=== PATIENT | male | born 1945 | race American Indian/Alaskan Native ===

== ENCOUNTER 2021-02-03 08:54 | Day surgery (SDC) | payer MEDICARE, OTHER ==
[2021-02-02 10:31] LABS: PARTIAL THROMBOPLASTIN TIME 28 SECONDS (22-32)
[2021-02-02 10:33] LABS: BASOPHILS % (AUTO) 1.4 % (0-1); EOSINOPHILS % (AUTO) 3.4 % (0-6); HEMATOCRIT 51.7 % (42.0-52.0); HEMOGLOBIN 17.6 g/dl (14.0-17.9); LYMPHOCYTES % (AUTO) 20.3 % (21-51); MEAN CORPUSCULAR HEMOGLOBIN 31.1 PG (27.0-31.0); MEAN CORPUSCULAR HGB CONC 34.1 g/dL (33.0-36.5); MEAN CORPUSCULAR VOLUME 91.2 FL (78-98); MEAN PLATELET VOLUME 9.1 FL (7.4-10.4); MONOCYTES % (AUTO) 7.3 % (2-12); NEUTROPHILS % (AUTO) 67.6 % (42-75); PLATELET COUNT 187 X10'3 (140-440); RED BLOOD COUNT 5.67 X10'6 (4.70-6.10); RED CELL DISTRIBUTION WIDTH 14.3 % (11.5-14.5); WHITE BLOOD COUNT 7.8 X10'3 (4.5-11.0)
[2021-02-02 10:34] LABS: BASOPHILS # (AUTO) 0.1 X10'3 (0-0.2); EOSINOPHILS # (AUTO) 0.3 X10'3 (0-0.9); LYMPHOCYTES # (AUTO) 1.6 X10'3 (1.1-4.8); MONOCYTES # (AUTO) 0.6 X10'3 (0-0.9); NEUTROPHILS # (AUTO) 5.3 X10'3 (1.8-7.7)
[2021-02-02 10:54] LABS: ANION GAP 11 (8-16); BLOOD UREA NITROGEN 15 MG/DL (7-18); BUN/CREATININE RATIO 10.9 (5.4-32.0); CALCIUM 8.4 MG/DL (8.5-10.1); CHLORIDE 107 MMOL/L (99-107); CREATININE 1.37 MG/DL (0.60-1.10); GLUCOSE 136 MG/DL (70-104); POTASSIUM 4.1 MMOL/L (3.5-5.1); SODIUM 142 MMOL/L (135-145); TOTAL CARBON DIOXIDE 23.9 MMOL/L (24-32); eGFR 51 ML/MIN
[~2021-02-03] VITALS: Ht 175.3 cm; Wt 111.5 kg
[2021-02-03] VITALS (9 sets, daily range): BP systolic 116–150; BP diastolic 63–94
[~2021-02-03 08:54] MED LIST: ALBU2.5V7 NEB; AMIO200T61 PO; APIX5TAB3 PO; CARV3.1289 PO; CLOP75TA34 PO; DIGO125T97 PO; FAMO40TA7 PO; FERR325T28 PO; FURO10VI51 IV; LANS30CA37 PO; LEVO750T21 PO; LISI-790 PO; NIA500ERT PO; POTA10CA44 PO; PRAV80TA3 PO
[2021-02-03] MEDS ORDERED: cefazolin/dext.iso 2gm/100ml 100 ML IV ONE (09:10)
[2021-02-03] MEDS ORDERED: ALLO100T PO (09:25)
[2021-02-03] MEDS ORDERED: SPIR25TA5 PO (09:25)
[2021-02-03] MEDS ORDERED: SACU1TAB PO (09:25)
[2021-02-03] MEDS ORDERED: FURO40TA4 PO (09:25)
[2021-02-03] MEDS ORDERED: CARV-49 PO (09:25)
[2021-02-03] MEDS ORDERED: ASPI-1265 PO (09:25)
[2021-02-03] MEDS ORDERED: midazolam 1 mg/ML 2ml injection ONE ×3 (12:20→16:07)
[2021-02-03] MEDS ORDERED: fentaNYL/PF 50MCG/1 ML 2ML syringe ONE ×3 (12:20→16:07)
[2021-02-03] MEDS ORDERED: iohexol 350MG/ML 100ml bottle IV ONE ×2 (12:21→15:33)
[2021-02-03] MEDS ORDERED: ceFAZolin 1000mg inj ONE (12:21)
[2021-02-03] MEDS ORDERED: LIDOcaine 1% W/epiNEPHrine 1:100,000 20ml vial ONE (12:21)
[2021-02-03] MEDS ORDERED: vancomycin/NS 1 GM ADD-VANTAGE 250 ML IV ONE (15:20)
[2021-02-03] MEDS ORDERED: HYDROcodone/acetaminophen 10/325mg tab PO PRN (17:15)
[2021-02-03] MEDS ORDERED: HYDROcodone/acetaminophen 5mg/325mg tablet PO PRN (17:15)
--- NOTE | 2021-02-03 18:55 | NUR ---
report given to Sugar SHAY
== END 2021-02-03 20:50 | disposition home or self-care (01) ==
LOC: SSTAY O 08:54
PROVIDERS: ATTEND Internal Medicine Cardiovascular Disease
DX: I42.0 Dilated cardiomyopathy (principal); I25.5 Ischemic cardiomyopathy; I44.7 Left bundle-branch block, unspecified; I11.0 Hypertensive heart disease with heart failure; I50.22 Chronic systolic (congestive) heart failure; E78.49 Other hyperlipidemia; G47.30 Sleep apnea, unspecified; I25.10 Atherosclerotic heart disease of native coronary artery without angina pectoris; I25.2 Old myocardial infarction; I48.0 Paroxysmal atrial fibrillation; E11.9 Type 2 diabetes mellitus without complications; E66.9 Obesity, unspecified; Z68.36 Body mass index [BMI] 36.0-36.9, adult; Z95.1 Presence of aortocoronary bypass graft; Z79.82 Long term (current) use of aspirin; Z79.899 Other long term (current) drug therapy; Z85.46 Personal history of malignant neoplasm of prostate; Z95.5 Presence of coronary angioplasty implant and graft; Z87.891 Personal history of nicotine dependence; Z72.89 Other problems related to lifestyle
CPT/HCPCS: 33225; 33249; 36415; 71046; 80048; 83880; 85025; 85610; 85730; 93005; 99152; 99153; C1769; C1882; C1887; C1894; C1895; C1900; J0690; J2250; J3010; J3370; Q9967; A4565; A4620; A6258; A6449

== ENCOUNTER 2021-05-14 09:11 | Inpatient (IN) | payer MEDICARE, OTHER ==
[~2021-05-14] VITALS: Ht 175.3 cm; Wt 111.3 kg
[~2021-05-14 09:11] MED LIST changes: -ALBU2.5V7 NEB; +ALLO100T PO; -AMIO200T61 PO; -APIX5TAB3 PO; +ASPI-1265 PO; +CARV-49 PO; -CARV3.1289 PO; -CLOP75TA34 PO; -DIGO125T97 PO; -FERR325T28 PO; -FURO10VI51 IV; +FURO40TA4 PO; -LEVO750T21 PO; -LISI-790 PO; +LISI5TAB22 PO; -NIA500ERT PO; -POTA10CA44 PO; +SACU1TAB PO; +SPIR25TA5 PO
--- NOTE | 2021-05-14 10:06 | NUR ---
Bettina march per Dr. Ahn at this time Addendum: 05/14/21 at 1007 by Pooja ROJAS Amended: Links added.
[2021-05-14 10:14] LABS: BASOPHILS # (AUTO) 0.1 X10'3 (0-0.2); BASOPHILS % (AUTO) 0.5 % (0-1); EOSINOPHILS # (AUTO) 0.1 X10'3 (0-0.9); EOSINOPHILS % (AUTO) 0.5 % (0-6); HEMATOCRIT 50.6 % (42.0-52.0); HEMOGLOBIN 16.9 g/dl (14.0-17.9); LYMPHOCYTES # (AUTO) 0.6 X10'3 (1.1-4.8); LYMPHOCYTES % (AUTO) 3.6 % (21-51); MEAN CORPUSCULAR HEMOGLOBIN 30.7 PG (27.0-31.0); MEAN CORPUSCULAR HGB CONC 33.4 g/dL (33.0-36.5); MEAN CORPUSCULAR VOLUME 91.9 FL (78-98); MEAN PLATELET VOLUME 8.4 FL (7.4-10.4); MONOCYTES # (AUTO) 0.8 X10'3 (0-0.9); MONOCYTES % (AUTO) 4.5 % (2-12); NEUTROPHILS # (AUTO) 15.3 X10'3 (1.8-7.7); NEUTROPHILS % (AUTO) 90.9 % (42-75); PLATELET COUNT 145 X10'3 (140-440); RED CELL DISTRIBUTION WIDTH 14.1 % (11.5-14.5); WHITE BLOOD COUNT 16.9 X10'3 (4.5-11.0)
[2021-05-14 10:39] LABS: ALANINE AMINOTRANSFERASE 24 U/L (12-78); ALBUMIN 3.6 G/DL (3.4-5.0); ALKALINE PHOSPHATASE 68 IU/L (46-116); ANION GAP 8 (8-16); ASPARTATE AMINO TRANSFERASE 17 U/L (10-37); BILIRUBIN,TOTAL 1.4 MG/DL (0.1-1.0); BLOOD UREA NITROGEN 11 MG/DL (7-18); BUN/CREATININE RATIO 8.8 (5.4-32.0); CHLORIDE 106 MMOL/L (99-107); CREATININE 1.25 MG/DL (0.60-1.10); GLUCOSE 172 MG/DL (70-104); POTASSIUM 4.2 MMOL/L (3.5-5.1); SODIUM 138 MMOL/L (135-145); TOTAL CARBON DIOXIDE 24.4 MMOL/L (24-32); TOTAL PROTEIN 7.1 G/DL (6.4-8.2); eGFR 56 ML/MIN
[2021-05-14] MEDS ORDERED: furosemide 10 MG/1 ML 10ml inj IV ONE (11:05)
--- NOTE | 2021-05-14 12:10 | NUR ---
PT STOOD TO URINATE WITH STANDBY ASSISTANCE.
--- NOTE | 2021-05-14 12:36 | NUR ---
PT TRIALED OFF BIPAP, ABLE TO SAY 3-4 WORDS, INCREASED WOB CONTINUES. MD INFORMED. PER MD, PT WILL BE ADMITTED.
[2021-05-14] MEDS ORDERED: magnesium 2GM in 50ml NS 50 ML IV PRN (13:10)
[2021-05-14] MEDS ORDERED: magnesium 4gm in 100ml NS 100 ML IV PRN (13:10)
[2021-05-14] MEDS ORDERED: magnesium Cl slow-release 64mg tablet PO PRN (13:10)
[2021-05-14] MEDS ORDERED: potassium CL 10mEq/100ml bag 100 ML IV PRN (13:10)
[2021-05-14] MEDS ORDERED: ondansetron/PF 4mg/2ml inj IV PRN (13:10)
[2021-05-14] MEDS ORDERED: acetaminophen 325mg tablet PO PRN (13:10)
[2021-05-14] MEDS ORDERED: potassium Cl 20 mEq SR tablet PO PRN ×2 (13:10)
[2021-05-14] MEDS ORDERED: mag hydrox/Alum hydrox/simeth 30ml oral suspension PO PRN (13:10)
[2021-05-14] MEDS ORDERED: magnesium hydroxide 30ml (MOM) UD suspension PO PRN (13:10)
[2021-05-14 14:03] LABS: MAGNESIUM 1.7 MG/DL (1.5-2.4)
--- NOTE | 2021-05-14 14:03 | NUR ---
PT UP TO USE URINAL WITH STANDBY ASSISTANCE. TOLERATED WELL, RETURNED TO BED WITHOUT INCIDENT.
--- NOTE | 2021-05-14 14:21 | NUR ---
REPORT GIVEN TO JASPAL MEJIA
[2021-05-14] MEDS ORDERED: SACU1TAB7 PO (14:32)
[2021-05-14] MEDS ORDERED: FURO20TA4 PO (14:32)
[2021-05-14] MEDS ORDERED: FAMO20TA79 PO (14:32)
[2021-05-14] MEDS ORDERED: LANS15CA18 PO (14:32)
[2021-05-14 16:31] VITALS: BP 123/84
[2021-05-14 18:00] VITALS: BP 129/84
--- NOTE | 2021-05-14 19:05 | NUR ---
Problems reprioritized. Patient report given, questions answered & plan of care reviewed with Yanni.
[2021-05-14] MEDS: docusate sod 100mg capsule PO SCH (19:12)
[2021-05-14] MEDS: carVEDilol 3.125mg tablet PO SCH (19:17)
[2021-05-14] MEDS: K and/or MAG REPLACEMENT MC SCH ×2 (19:19→20:00)
[2021-05-14] MEDS: sacubitril/valsartan 49mg-51mg tablet PO SCH (19:31)
[2021-05-14 22:00] VITALS: BP 121/78
--- NOTE | 2021-05-15 06:55 | NUR ---
Patient in room PCU 3015. I have received report from Yanni SHAY and had the opportunity to ask questions and assume patient care.
[2021-05-15] MEDS: carVEDilol 3.125mg tablet PO SCH (07:31)
[2021-05-15] MEDS: docusate sod 100mg capsule PO SCH (07:31)
[2021-05-15] MEDS: sacubitril/valsartan 49mg-51mg tablet PO SCH (07:42)
[2021-05-15 07:46] LABS: BASOPHILS % (AUTO) 0.4 % (0-1); EOSINOPHILS # (AUTO) 0.2 X10'3 (0-0.9); EOSINOPHILS % (AUTO) 2.4 % (0-6); HEMATOCRIT 46.2 % (42.0-52.0); HEMOGLOBIN 15.9 g/dl (14.0-17.9); LYMPHOCYTES % (AUTO) 10.6 % (21-51); MEAN CORPUSCULAR HEMOGLOBIN 30.9 PG (27.0-31.0); MEAN CORPUSCULAR HGB CONC 34.4 g/dL (33.0-36.5); MEAN CORPUSCULAR VOLUME 89.7 FL (78-98); MEAN PLATELET VOLUME 8.8 FL (7.4-10.4); MONOCYTES % (AUTO) 10.1 % (2-12); NEUTROPHILS # (AUTO) 7.3 X10'3 (1.8-7.7); NEUTROPHILS % (AUTO) 76.5 % (42-75); PLATELET COUNT 139 X10'3 (140-440); RED BLOOD COUNT 5.15 X10'6 (4.70-6.10); RED CELL DISTRIBUTION WIDTH 14.2 % (11.5-14.5); WHITE BLOOD COUNT 9.6 X10'3 (4.5-11.0)
[2021-05-15] MEDS ORDERED: lansoprazole 15mg solutab PO SCH (08:00)
[2021-05-15] MEDS ORDERED: enoxaparin 40mg/0.4ml syringe SUBCUT SCH (08:00)
[2021-05-15] MEDS ORDERED: aspirin 81mg tab.chew PO SCH (08:00)
[2021-05-15] MEDS ORDERED: famotidine 20mg tablet PO SCH (08:00)
[2021-05-15] MEDS ORDERED: atorvastatin 20mg tablet PO SCH (08:00)
[2021-05-15 08:01] LABS: ALBUMIN 3.4 G/DL (3.4-5.0); ANION GAP 12 (8-16); BLOOD UREA NITROGEN 25 MG/DL (7-18); BUN/CREATININE RATIO 14.5 (5.4-32.0); CALCIUM 8.3 MG/DL (8.5-10.1); CHLORIDE 106 MMOL/L (99-107); CREATININE 1.72 MG/DL (0.60-1.10); GLUCOSE 119 MG/DL (70-104); POTASSIUM 3.9 MMOL/L (3.5-5.1); SODIUM 142 MMOL/L (135-145); eGFR 39 ML/MIN
[2021-05-15 11:00] VITALS: BP 102/62
[2021-05-15] MEDS ORDERED: SPIR25TA PO (13:29)
[2021-05-15] MEDS ORDERED: FURO-150 PO (13:29)
[2021-05-15] MEDS ORDERED: APIX5TAB3 PO (13:29)
[2021-05-15] MEDS ORDERED: apixaban 5mg tablet PO SCH (13:45)
[2021-05-15] MEDS ORDERED: furosemide 20MG tablet PO ONE (13:45)
[2021-05-15] MEDS ORDERED: spironolactone 25 MG tablet PO ONE (14:01)
[2021-05-15 14:19] VITALS: BP 121/64
--- NOTE | 2021-05-15 14:39 | NUR ---
network operations manager was paged and message was left for [employer] regarding home o2
--- NOTE | 2021-05-15 14:42 | NUR ---
O2 Sat at rest on room air:_88__% If below 89%: Recovery O2 Sat at rest on _2__LPM:_94__%:___% via NC (mask/nasal cannula, etc..) No further documentation is necessary. If O2 Sat did not drop below 89% on room air,ambulate patient on room air. O2 Sat while ambulating on room air:___% Recovery O2 Sat while ambulating on ___LPM:___% No further documentation is necessary. If patient does not drop below 89% while ambulating, he/she does not qualify for home O2. Addendum: 05/15/21 at 1443 by Laura Menendez RN Amended: Links added.
[2021-05-15 15:00] VITALS: BP 98/59
--- NOTE | 2021-05-15 17:01 | NUR ---
Pt off floor to CT Addendum: 05/15/21 at 1703 by Laura Menendez RN ignore previous note Addendum: 05/15/21 at 1704 by Laura Menendez RN ignore previous note
--- NOTE | 2021-05-15 17:04 | NUR ---
Pt left via wheelchair, no distress noted, daughter and son at side. IV d/c with canula intact. Pt left with oxygen
== END 2021-05-15 17:56 | disposition home or self-care (01) | DRG 189 ==
LOC: ER 09:12 → ED HOLD 13:13 → PCU 3S 15:34
PROVIDERS: ADMIT Family Medicine; ATTEND Family Medicine
PROC: 5A09357 Assistance with Respiratory Ventilation, Less than 24 Consecutive Hours, Continuous Positive Airway Pressure (ICD-10-PCS; principal; 2021-05-14)
DX: J96.01 Acute respiratory failure with hypoxia (principal); I50.23 Acute on chronic systolic (congestive) heart failure; I13.0 Hypertensive heart and chronic kidney disease with heart failure and stage 1 through stage 4 chronic kidney disease, or unspecified chronic kidney disease; I42.0 Dilated cardiomyopathy; E11.22 Type 2 diabetes mellitus with diabetic chronic kidney disease; E66.01 Morbid (severe) obesity due to excess calories; E78.00 Pure hypercholesterolemia, unspecified; E78.5 Hyperlipidemia, unspecified; I25.10 Atherosclerotic heart disease of native coronary artery without angina pectoris; Z20.822 Contact with and (suspected) exposure to COVID-19; J45.909 Unspecified asthma, uncomplicated; I48.0 Paroxysmal atrial fibrillation; G47.33 Obstructive sleep apnea (adult) (pediatric); K21.9 Gastro-esophageal reflux disease without esophagitis; M10.9 Gout, unspecified; M19.90 Unspecified osteoarthritis, unspecified site; N18.9 Chronic kidney disease, unspecified; Z79.01 Long term (current) use of anticoagulants; Z79.899 Other long term (current) drug therapy; Z85.46 Personal history of malignant neoplasm of prostate; Z87.891 Personal history of nicotine dependence; Z95.1 Presence of aortocoronary bypass graft; Z95.5 Presence of coronary angioplasty implant and graft; Z95.810 Presence of automatic (implantable) cardiac defibrillator; Z68.36 Body mass index [BMI] 36.0-36.9, adult; Z83.3 Family history of diabetes mellitus; Z71.3 Dietary counseling and surveillance
CPT/HCPCS: 36415; 71045; 80048; 80053; 83605; 83735; 83880; 84145; 84484; 85025; 87040; 87635; 93005; 93306; 94660; 94760; 94799; 96374; 97116; 97161; 97530; 99285; G0378; J1650; J1940

== ENCOUNTER 2025-05-14 10:15 | Day surgery (SDC) | payer MEDICARE, OTHER ==
[2025-05-13 10:41] LABS: MEAN PLATELET VOLUME 7.5 FL (7.4-10.4); RED CELL DISTRIBUTION WIDTH 17.5 % (11.5-14.5)
[2025-05-13 10:50] LABS: CREATININE 1.33 MG/DL (0.60-1.10); TOTAL CARBON DIOXIDE 22.8 MMOL/L (24-32); eGFR 52 ML/MIN
[2025-05-13 10:52] LABS: APTT 26 SECONDS (22-32); INR 1.1 INR
[2025-05-14] VITALS (11 sets, daily range): BP systolic 116–135; BP diastolic 65–91; PULSE 83–100; RESP 12–22; TEMP 98.3; O2SAT 91–97
[~2025-05-14] VITALS: Ht 172.7 cm; Wt 101.2 kg
[~2025-05-14 10:15] MED LIST changes: -ALLO100T PO; +APIX5TAB3 PO; -FAMO40TA7 PO; -FURO40TA4 PO; +LANS15CA18 PO; -LANS30CA37 PO; -LISI5TAB22 PO; -PRAV80TA3 PO; +PRAV80TA75 PO; -SACU1TAB PO; +SACU1TAB7 PO; +SPIR25TA PO; -SPIR25TA5 PO
[2025-05-14] MEDS ORDERED: ceFAZolin 2gm/dext,iso 50mL 50 ML IV ONE (10:35)
--- NOTE | 2025-05-14 10:43 | ELECTROCARDIOGRAPH REPORT ---
[facility] Test Date: 2025-05-14 Test Time: 10:41:10 Pat Name: JACKSON ESQUIVEL Department: [facility] Patient ID: [facility]-[id number] Room: Gender: M [employer] Technician: NIC : 1945 Requested By: LARRY ENNIS Order Number: [id number] Reading MD: Dr. SHELDON Ennis Measurements Intervals Allen Rate: 85 P: 69 NC: 49 QRS: 108 QRSD: 141 T: 104 QT: 457 QTc: 544 Interpretive Statements Atrial-sensed ventricular-paced complexes No further analysis attempted due to paced rhythm Baseline wander in lead(s) V6 Electronically Signed On 05-14-2025 17:07:[address] SHELDON Ennis Please click the below link to view image of tracing.
[2025-05-14] MEDS ORDERED: AMLO10TA5 PO (11:26)
[2025-05-14] MEDS ORDERED: ATOR40TA72 PO (11:26)
[2025-05-14] MEDS ORDERED: Immune Support PO (11:26)
[2025-05-14] MEDS ORDERED: COLLAGEN ULTRA PO (11:26)
[2025-05-14] MEDS ORDERED: CHOL100046 PO (11:26)
[2025-05-14] MEDS ORDERED: MONT-47 PO (11:26)
[2025-05-14] MEDS ORDERED: FLUT1BLS3 INH (11:26)
[2025-05-14] MEDS ORDERED: SPIR25TA5 PO (11:26)
[2025-05-14] MEDS ORDERED: midazolam 1 mg/ML 2ml injection ONE (12:34)
[2025-05-14] MEDS ORDERED: fentaNYL/PF 50MCG/1 ML 2ML syringe ONE (12:34)
[2025-05-14] MEDS ORDERED: LIDOcaine 1% W/epiNEPHrine 1:100,000 20ml vial ONE (12:34)
[2025-05-14] MEDS ORDERED: HYDROcodone/acetaminophen 10/325mg tab PO PRN (15:15)
[2025-05-14] MEDS ORDERED: HYDROcodone/acetaminophen 5mg/325mg tablet PO PRN (15:15)
[2025-05-14] MEDS: vancomycin/NS 1 GM ADD-VANTAGE 250 ML X 1 DOSE IV ONE (15:24)
[2025-05-14] MEDS ORDERED: CEPH-585 PO (15:55)
--- NOTE | 2025-05-14 21:09 | CARDIOLOGY REPORT ---
DATE OF SERVICE: 05/14/2025 DICTATING PHYSICIAN: SHELDON Hidalgo MD DATE OF SERVICE: 05/14/2025 GENDER: Male AGE: 79 HEIGHT: 172 cm WEIGHT: 101.2 kg BODY SURFACE AREA: 2.13 m2 PRIMARY PHYSICIAN: ERAN at [facility]. CAN MACHINE OPERATOR: SHELDON Hidalgo MD. INDICATION: The patient is a 79-year-old with a history of hypertension, hyperlipidemia, CAD, cardiomyopathy, CABG, and biventricular AICD placement. The patient had a biventricular AICD placement by Dr. SHELDON Hidalgo back on 02/03/2021. Recent AICD generator change noted. The patient's AICD was very close to the POONAM. The patient was dependent on the AICD and the patient prefers in view of the oncoming winter and he [place] of town, prefers to proceed with AICD generator change-out as soon as possible. Risks, benefits, and alternative options discussed. Informed consent obtained. PREOPERATIVE DIAGNOSIS: Bi-V AICD close to POONAM. POSTOPERATIVE DIAGNOSIS: Bi-V AICD close to POONAM. PROCEDURES DONE: * Explant of old biventricular AICD generator. * Implant of new biventricular AICD generator. * Conscious sedation time of 45 minutes. SURGEON: SHELDON Hidalgo MD, [facility] BIOFUELS MANAGER SURGEON: None. ANESTHESIA: Conscious sedation and local anesthesia. COMPLICATIONS: None. ESTIMATED BLOOD LOSS: Less than 5 mL. PROCEDURE IN DETAIL: The left infraclavicular area was prepped and draped in the usual fashion. Using blunt dissection and electrocautery, the prepectoral AICD pocket was opened. AICD was extracted. Leads were disconnected and connected to the new pulse generator. Setscrews were tightened. TUG test was performed. The pocket was irrigated with copious antibiotic solution. An antibiotic pouch was used. The pacemaker pocket was closed with continuous #0 Vicryl followed by interrupted #0 Vicryl, third layer of interrupted 2-0 Vicryl was applied. Skin approximated with staple. Pressure dressing was applied. The patient tolerated the procedure well with no complications. TECHNICAL INFORMATION: Device used is [employer]onic SAP [employer]UT[employer] ARCHITECT-D, Crome HF, Quad MRI, IS4/DF4, model number [id number], serial number [id number], [employer]tronic, 05/14/2025, left pectoral location. Explanted device was [id number], Amplia MRI Quad. Right atrial lead: Model number [id number], 52 cm long, serial number [id number], 02/03/2021, right atrial appendage, P-wave amplitude 2.5 mV, 431 ohms impedance, pacing threshold 1.75 V at 0.8 milliseconds. RV lead: Model number [id number], 62 cm long, serial number [id number], [employer]onic, 02/03/2021, RV apex, and pacing impedance of 323 ohms, pacing threshold 0.5 V at 0. 4 milliseconds. LV lead: Model number [id number], serial number [id number], [employer]onic, implanted 02/03/2021, lateral vein, impedance of 968 ohms, pacing threshold of 2.5 V at 1.0 millisecond. IMPRESSION: A 79-year-old male with biventricular AICD close to POONAM, underwent successful AICD generator change with no complications. SHELDON Hidalgo MD TID: [id number] RECEIPT: [id number] ALEXANDRA/TYRA [facility]: [facility]
== END 2025-05-14 17:50 | disposition home or self-care (01) ==
LOC: SSTAY O 10:15
PROVIDERS: ATTEND Internal Medicine Cardiovascular Disease
DX: Z45.02 Encounter for adjustment and management of automatic implantable cardiac defibrillator (principal); E78.5 Hyperlipidemia, unspecified; E66.9 Obesity, unspecified; G47.33 Obstructive sleep apnea (adult) (pediatric); I13.0 Hypertensive heart and chronic kidney disease with heart failure and stage 1 through stage 4 chronic kidney disease, or unspecified chronic kidney disease; I50.22 Chronic systolic (congestive) heart failure; N18.9 Chronic kidney disease, unspecified; I48.91 Unspecified atrial fibrillation; K21.9 Gastro-esophageal reflux disease without esophagitis; M10.9 Gout, unspecified; Z95.1 Presence of aortocoronary bypass graft; Z85.46 Personal history of malignant neoplasm of prostate; Z87.891 Personal history of nicotine dependence; Z83.3 Family history of diabetes mellitus
CPT/HCPCS: 33264; 36415; 80048; 85025; 85610; 85730; 93005; 99152; 99153; A6402; C1882; J0690; J1200; J2250; J3010; J3373; J3490; J7030; Z7610; A6449